=== PATIENT | male | born 2000 | race Caucasian/White ===

== ENCOUNTER 2020-08-23 08:52 | Observation (INO) | payer BC, OTHER ==
[2020-08-23] MEDS ORDERED: LORazepam 2 MG/ML INJ IV STA ×2 (09:03→13:14)
[2020-08-23] MEDS ORDERED: ONDANSETRON 4 MG/2 ML VIAL IVP STA (09:03)
[2020-08-23] MEDS ORDERED: SODIUM CHLORIDE 0.9% 2,000 ML IV STA (09:03)
[2020-08-23] MEDS ORDERED: KETOROLAC 15 MG/ML 1 ML VIAL IVP STA (09:03)
--- NOTE | 2020-08-23 09:14 | ED ---
General Adult HPI - General Chief complaint: Abdominal Pain Stated complaint: abd pain Time Seen by Provider: 08/23/20 08:57 Source: patient, RN notes reviewed Mode of arrival: wheelchair Limitations: no limitations - History of Present Illness Initial comments: 19-year-old male with a past medical history of IBS presents to the emergency room for a chief complaint of abdominal pain. Patient reports he has had this abdominal pain before. He has had a scope done at [facility] and was diagnosed bowel syndrome. Patient also has nausea vomiting and diarrhea. Patient reports this happened 3 days ago. Father reports that triggers his anxiety. Patient reports his whole abdomen hurts. Patient states that hot showers make it better. States he showers 7 times yesterday but then when he gets out the pain comes back. He does admit to smoking marijuana.Patient has no other complaints at this time including shortness of breath, chest pain, headache, or visual changes. - Related Data Home Medications Medication Instructions Recorded Confirmed L.acidoph,Paracasei, B.lactis 1 cap PO DAILY 08/23/20 08/23/20 [Probiotic] Allergies Allergy/AdvReac Type Severity Reaction Status Date / Time No Known Allergies Allergy Verified 08/23/20 09:53 Review of Systems ROS Statement: Those systems with pertinent positive or pertinent negative responses have been documented in the HPI. ROS Other: All systems not noted in ROS Statement are negative. Past Medical History Additional Past Medical History / Comment(s): IBS History of Any Multi-Drug Resistant Organisms: None Reported Past Surgical History: No Surgical Hx Reported Past Psychological History: Anxiety Smoking Status: Current every day smoker Past Alcohol Use History: None Reported Past Drug Use History: Marijuana General Exam Limitations: no limitations General appearance: alert, anxious Head exam: Present: atraumatic, normocephalic, normal inspection Eye exam: Present: normal appearance, PERRL, EOMI. Absent: scleral icterus, c onjunctival injection, periorbital swelling ENT exam: Present: normal exam, mucous membranes moist Neck exam: Present: normal inspection. Absent: tenderness, meningismus, lymphadenopathy Respiratory exam: Present: normal lung sounds bilaterally. Absent: respiratory distress, wheezes, rales, rhonchi, stridor Cardiovascular Exam: Present: regular rate, normal rhythm, normal heart sounds GI/Abdominal exam: Present: soft, normal bowel sounds. Absent: distended, tenderness, guarding, rebound, rigid Neurological exam: Present: alert Course Vital Signs 08/23/20 08/23/20 08:54 10:52 Temperature 98.5 F Pulse Rate 107 H 93 Respiratory 18 20 Rate Blood Pressure 150/72 117/56 O2 Sat by Pulse 99 99 Oximetry Medical Decision Making - Medical Decision Making Condition initially tachycardic. On exam patient has minimal abdominal tenderness generalized in nature. He is vomiting. CBC unremarkable. CMP unremarkable. Patient has been given several different medications include Zofran, Toradol, Reglan, Benadryl, Ativan, bentyl. He continues to vomit. I did discuss this case with Dr. Jenkins from [facility] who does agree to admit patient. Requests CT be ordered and patient be admitted to observation. - Lab Data Result diagrams: 08/23/20 09:07 08/23/20 09:07 Lab Results 08/23/20 08/23/20 Range/Units 09:07 09:07 WBC 6.5 (3.8-10.6) k/uL RBC 5.35 (4.30-5.90) m/uL Hgb 16.4 (13.0-17.5) gm/dL Hct 46.1 (39.0-53.0) % MCV 86.2 (80.0-100.0) fL MCH 30.8 (25.0-35.0) pg MCHC 35.7 (31.0-37.0) g/dL RDW 12.2 (11.5-15.5) % Plt Count 274 (150-450) k/uL MPV 7.3 Neutrophils % 66 % Lymphocytes % 24 % Monocytes % 5 % Eosinophils % 3 % Basophils % 1 % Neutrophils # 4.3 (1.3-7.7) k/uL Lymphocytes # 1.5 (1.0-4.8) k/uL Monocytes # 0.3 (0-1.0) k/uL Eosinophils # 0.2 (0-0.7) k/uL Basophils # 0.0 (0-0.2) k/uL Sodium 140 (137-145) mmol/L Potassium 4.1 (3.5-5.1) mmol/L Chloride 102 (98-107) mmol/L Carbon Dioxide 23 (22-30) mmol/L Anion Gap 15 mmol/L BUN 13 (9-20) mg/dL Creatinine 0.98 (0.66-1.25) mg/dL Est GFR (CKD-EPI)AfAm >90 (>60 ml/min/1.73 sqM) Est GFR (CKD-EPI)NonAf >90 (>60 ml/min/1.73 sqM) Glucose 105 H (74-99) mg/dL Calcium 10.2 (8.4-10.2) mg/dL Total Bilirubin 1.5 H (0.2-1.3) mg/dL AST 23 (17-59) U/L ALT 16 (4-49) U/L Alkaline Phosphatase 72 (38-126) U/L Total Protein 8.1 (6.3-8.2) g/dL Albumin 5.2 H (3.5-5.0) g/dL Amylase 55 (30-110) U/L Lipase 49 (23-300) U/L Disposition Clinical Impression: Intractable nausea and vomiting, Abdominal pain Disposition: ADMITTED IP TO THIS HOSP Is patient prescribed a controlled substance at d/c from ED?: No Referrals: Prashant Lagunas MD [Primary Care Provider] - 1-2 days Time of Disposition: 11:24
[2020-08-23 09:42] LABS: Basophils % (A) 1 %; Eosinophils # (A) 0.2 k/uL (0-0.7); Eosinophils % (A) 3 %; HCT 46.1 % (39.0-53.0); HGB 16.4 gm/dL (13.0-17.5); Lymphocytes # (A) 1.5 k/uL (1.0-4.8); Lymphocytes % (A) 24 %; MCH 30.8 pg (25.0-35.0); MCHC 35.7 g/dL (31.0-37.0); MCV 86.2 fL (80.0-100.0); Mean Platelet Volume 7.3; Monocytes # (A) 0.3 k/uL (0-1.0); Monocytes % (A) 5 %; Neutrophils # (A) 4.3 k/uL (1.3-7.7); Neutrophils % (A) 66 %; Platelet Count 274 k/uL (150-450); RBC 5.35 m/uL (4.30-5.90); RDW 12.2 % (11.5-15.5); WBC 6.5 k/uL (3.8-10.6)
[2020-08-23] MEDS ORDERED: METOCLOPRAMIDE 5 MG/ML 2 ML VIAL IVP STA (09:55)
[2020-08-23] MEDS ORDERED: DICYCLOMINE 20 MG TAB PO STA (09:55)
[2020-08-23] MEDS ORDERED: diphenhydrAMINE 50 MG/ML 1 ML VIAL IVP STA (09:55)
[2020-08-23 10:04] LABS: ALT 16 U/L (4-49); AST 23 U/L (17-59); African American GFR (CKD) >90 (>60 ml/min/1.73 sqM); Albumin 5.2 g/dL (3.5-5.0); Alkaline Phosphatase 72 U/L (38-126); Amylase 55 U/L (30-110); Anion Gap 15 mmol/L; Blood Urea Nitrogen 13 mg/dL (9-20); Calcium 10.2 mg/dL (8.4-10.2); Carbon Dioxide 23 mmol/L (22-30); Chloride 102 mmol/L (98-107); Glucose 105 mg/dL (74-99); Lipase 49 U/L (23-300); Non-African American GFR(CKD) >90 (>60 ml/min/1.73 sqM); Potassium 4.1 mmol/L (3.5-5.1); Sodium 140 mmol/L (137-145); Total Bilirubin 1.5 mg/dL (0.2-1.3); Total Protein 8.1 g/dL (6.3-8.2)
[2020-08-23] MEDS ORDERED: NALOXONE 0.4 MG/ML 1 ML VIAL IV PRN (11:21)
[2020-08-23] MEDS ORDERED: ONDANSETRON 4 MG/2 ML VIAL IVP PRN (11:21)
[2020-08-23] MEDS ORDERED: METOCLOPRAMIDE 5 MG/ML 2 ML VIAL IVP PRN (11:22)
[2020-08-23] MEDS ORDERED: diphenhydrAMINE 50 MG/ML 1 ML VIAL IVP PRN (11:23)
[2020-08-23] MEDS: PANTOPRAZOLE 40 MG/10 ML VIAL IV SCH (11:46)
[2020-08-23] MEDS: SODIUM CHLORIDE 0.9% 1,000 ML IV SCH ×2 (11:47→19:29)
[2020-08-23 11:58] LABS: Appearance,Urine Clear (Clear); Bilirubin,Urine 1+ (Negative); Blood,Urine Small (Negative); Calcium Oxalate Crystals,Urine Occasional /hpf; Color,Urine Yellow; Glucose,Urine (UA) Negative (Negative); Ketones,Urine 4+ (Negative); Leukocyte Esterase,Urine Negative (Negative); Mucus,Urine Many /hpf; Nitrite,Urine Negative (Negative); PH, Urine 6.5 (5.0-8.0); Protein,Urine 1+ (Negative); RBC,Urine 19 /hpf (0-5); Specific Gravity,Urine 1.036 (1.001-1.035); WBC,Urine 1 /hpf (0-5)
[2020-08-23] MEDS: PROCHLORPERAZINE INJ 10 MG/2 ML VIAL IVP PRN ×2 (12:00→19:26)
--- NOTE | 2020-08-23 12:13 | CT ---
EXAMINATION TYPE: CT abdomen pelvis w con DATE OF EXAM: 08/23/2020 COMPARISON: None. HISTORY: generalized pain, history of IBS CT DLP: 616.6 mGycm, Automated Exposure Control for Dose Reduction was Utilized. CONTRAST: CT scan of the abdomen and pelvis is performed without oral and with IV Contrast, patient injected wi th 100 mL of Isovue 300. FINDINGS: LUNG BASES: No significant abnormality is appreciated. LIVER/GB: No significant abnormality is appreciated. PANCREAS: No significant abnormality is seen. SPLEEN: No significant abnormality is seen. ADRENALS: No significant abnormality is seen. KIDNEYS: No significant abnormality is seen. BOWEL: Suboptimal evaluation of bowel without enteric contrast. No suspicious small or large bowel di latation is seen. PROSTATE/SEMINAL VESICLES: No gross abnormality seen. LYMPH NODES: No greater than 1cm abdominal or pelvic lymph nodes are appreciated. OSSEOUS STRUCTURES: No significant abnormality is seen. OTHER: Focal narrowing of the celiac artery at its origin sagittal image 65. 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 Correlate clinically otherwise unremarkable study.
[2020-08-23] MEDS ORDERED: MORPHINE SULFATE 4 MG/ML SYRINGE IVP STA (13:14)
--- NOTE | 2020-08-23 14:05 | P.HPIM ---
History of Present Illness H&P Date: 08/23/20 Chief Complaint: Abdominal History of Presenting Illness: Patient is a 19-year-old male with a past medical history of inflammatory bowel syndrome who presented to the emergency department with a chief complaint of abdominal pain, nausea, vomiting, and diarrhea. Patient reports continuous abdominal pain nausea and vomiting 3 days with greater than 15 episodes of emesis daily followed by one episode of diarrhea this morning. Patient states he has been treating at home with hot showers showing mild improvement only during time in hot shower and immediately returns. Patient also reports daily cannabis use. Patient's father at bedside states patient has had continued episodes similar to this since high school which is also around the same time patient began smoking marijuana. Pt reports generalized abdominal pain and u nable to pinpoint exact location. Pt very restless, on hands and knees rocking back and forth in hospital bed. Additional medications being given. Pt again reports symptoms began 3 days ago and he denies having any lightheadedness, fever, chills, chest pain, palpitaitons, shortness of breath, or experiencing any numbness/tingling/weakness in extremities. Patient had full work-up completed in the emergency department. Labs were drawn with CBC and BMP unremarkable findings, lactic acid normal findings at 1.2, and liver profile did show an elevated total bili of 1.5. 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 Patient has been admitted under our services for abdominal pain with intractable nausea and vomiting and we have consulted Vascular surgery secondary to possible findings on CT. Review of systems: Pertinent positives and negatives as discussed in HPI, a complete review of systems was performed and all other systems are negative. Physical exam: General: Non toxic, appears at stated age, pt appears distressed secondary to reports of pain and uncomfortable and restless appearance-rocking back and forth on hands and knees. Derm: warm, dry Head: atraumatic, normocephalic, symmetric Eyes: EOMI, no lid lag, anicteric sclera Mouth: no lip lesion, mucus membranes dry Cardiovascular: S1-S2 normal with regular rhythm and tachycardic rate. No murmurs, gallops, or rubs noted. Posterior tibial pulses palpated bilaterally. Cap refill less than 2 seconds. Lungs: Respirations even, regular, and unlabored on room air. Lungs clear to a uscultation bilaterally with no wheezes, rhonchi, or rales noted. No accessory muscle usage. Abdominal: soft, diffuse tenderness upon palpation-increased reports of pain to epigastric and right lower quadrant regions. No guarding, no appreciable organomegaly Ext: No gross muscle atrophy, no edema, no contractures Neuro: GCS 15. Speech clear. 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 -NPO diet -Aggressive rehydration with IV fluids -Pain management and symptomatic care with pain medication and antiemetics. -Vascular surgery consult -Duplex ultrasound of celiac artery for further evaluation. Cannabinoid abuse -Patient reports daily use of cannabis, strongly encouraged and educated on the importance of cessation and risks associated with continued use including cannabinoid hyperemesis syndrome. The patient is admitted with an anticipated greater than 2 midnight stay for evaluation of abdominal pain and intractable nausea and vomiting. CODE STATUS: Full code DVT prophylaxis: SCDs Discussed with: Patient, RN and patient's mother and father at bedside. Anticipated discharge date: clinical course to determine Anticipated discharge place: home A total of 45 minutes was spent on the care of this complex patient more than 50% of the time was spent in counseling and care coordination. Past Medical History Additional Past Medical History / Comment(s): IBS History of Any Multi-Drug Resistant Organisms: None Reported Past Surgical History: No Surgical Hx Reported Past Psychological History: Anxiety Smoking Status: Current every day smoker Past Alcohol Use History: None Reported Past Drug Use History: Marijuana Medications and Allergies Home Medications Medication Instructions Recorded Confirmed Type L.acidoph,Paracasei, B.lactis 1 cap PO DAILY 08/23/20 08/23/20 History [Probiotic] Allergies Allergy/AdvReac Type Severity Reaction Status Date / Time No Known Allergies Allergy Verified 08/23/20 09:53 Physical Exam Vitals: Vital Signs Temp Pulse Resp BP Pulse Ox 08/23/20 12:00 18 08/23/20 10:52 93 20 117/56 99 08/23/20 08:54 98.5 F 107 H 18 150/72 99 Intake and Output 08/22/20 08/23/20 08/23/20 22:59 06:59 14:59 Other: Voiding Method Toilet Weight 68.039 kg Results CBC & Chem 7: 08/23/20 09:07 08/23/20 09:07 Labs: Abnormal Lab Results - Last 24 Hours (Table) 08/23/20 08/23/20 Range/Units 09:07 09:07 Glucose 105 H (74-99) mg/dL Total Bilirubin 1.5 H (0.2-1.3) mg/dL Albumin 5.2 H (3.5-5.0) g/dL Ur Specific [place] 1.036 H (1.001-1.035) Urine Protein 1+ H (Negative) Urine Ketones 4+ H (Negative) Urine Blood Small H (Negative) Urine Bilirubin 1+ H (Negative) Urine RBC 19 H (0-5) /hpf Calcium Oxalate Crystal Occasional H (None) /hpf Urine Mucus Many H (None) /hpf
--- NOTE | 2020-08-23 17:21 | US ---
EXAMINATION TYPE: US abdomen limited DATE OF EXAM: 08/23/2020 COMPARISON: CT 2020 CLINICAL HISTORY: CT showing poss celiac artery compression syndrome. There is possible narrowing at origin of celiac artery. The celiac artery peak systolic velocity is a t the origin measuring 143 cm/s. IMPRESSION: Mildly elevated celiac artery velocity at the origin and raises possibility of narrowing.
[2020-08-23] MEDS: LORazepam 2 MG/ML INJ IV PRN (17:51)
[2020-08-23] MEDS: KETOROLAC 15 MG/ML 1 ML VIAL IVP PRN (19:27)
[2020-08-24] MEDS: LORazepam 2 MG/ML INJ IV PRN ×3 (00:10→19:36)
[2020-08-24] MEDS: KETOROLAC 15 MG/ML 1 ML VIAL IVP PRN ×2 (01:39→18:22)
[2020-08-24] MEDS: SODIUM CHLORIDE 0.9% 1,000 ML IV SCH ×2 (03:33→08:37)
[2020-08-24] MEDS: PANTOPRAZOLE 40 MG/10 ML VIAL IV SCH (08:19)
[2020-08-24 10:42] LABS: HGB 14.5 gm/dL (13.0-17.5); MCH 30.4 pg (25.0-35.0); MCHC 34.6 g/dL (31.0-37.0); Mean Platelet Volume 7.2; Platelet Count 269 k/uL (150-450); RBC 4.77 m/uL (4.30-5.90); RDW 12.5 % (11.5-15.5); WBC 11.3 k/uL (3.8-10.6)
[2020-08-24 10:57] LABS: ALT 14 U/L (4-49); AST 19 U/L (17-59); African American GFR (CKD) >90 (>60 ml/min/1.73 sqM); Albumin 4.4 g/dL (3.5-5.0); Albumin/Globulin Ratio 1.8; Alkaline Phosphatase 55 U/L (38-126); Anion Gap 10 mmol/L; Blood Urea Nitrogen 13 mg/dL (9-20); Calcium 9.1 mg/dL (8.4-10.2); Carbon Dioxide 23 mmol/L (22-30); Chloride 107 mmol/L (98-107); Globulin 2.5 g/dL; Glucose 92 mg/dL (74-99); Non-African American GFR(CKD) >90 (>60 ml/min/1.73 sqM); Sodium 140 mmol/L (137-145); Total Bilirubin 1.2 mg/dL (0.2-1.3); Total Protein 6.9 g/dL (6.3-8.2)
--- NOTE | 2020-08-24 12:03 | P.GSCN ---
History of Present Illness Consult date: 08/24/20 Reason for Consult: possible celiac artery compression Requesting physician: Jennifer Purcell History of present illness: This is a pleasant 19-year-old male who presented to the emergency department with complaints of abdominal pain, nausea, and vomiting the last few days. Patient states he has chronic abdominal pain nausea and vomiting which began in his mana year in high school. He had followed at [facility] workup which includes an EGD and colonoscopy at age 15, his father is at the bedside and reported that there was no acute findings, some irritation from the EGD. Was told likely IBS. He states that usually starts with nausea, and vomiting and abdominal pain. States he has loose bowel movements usually once a day, takes probiotics. He denies any blood or mucus in his stool. He states he has had decreased appetite, weight loss of 55 pounds over the last few months. Reports the pain as sharp in the epigastric and periumbilical region, states he may vomit sometimes as many as 15-20 times a day, some days no vomiting. He denies any hematemesis or coffee-ground emesis. He admits to anxiety. Denies any shortness of breath or chest pain, fever or chills. He does have a significant history of marijuana smoking and dabbing multiple times a day. As part of his workup he had a CT of the abdomen and pelvis that showed focal narrowing of the celiac artery, possible celiac artery compression. Also abdominal ultrasound showed mildly elevated celiac artery was sitting at the origin and raises possibility of narrowing. Review of Systems 14 point review of systems was completed all pertinent positives and negatives as stated in the HPI. Past Medical History Additional Past Medical History / Comment(s): IBS History of Any Multi-Drug Resistant Organisms: None Reported Past Surgical History: No Surgical Hx Reported Past Anesthesia/Blood Transfusion Reactions: No Reported Reaction Past Psychological History: Anxiety Smoking Status: Current every day smoker Past Alcohol Use History: None Reported Past Drug Use History: Marijuana Medications and Allergies Home Medications Medication Instructions Recorded Confirmed Type L.acidoph,Paracasei, B.lactis 1 cap PO DAILY 08/23/20 08/23/20 History [Probiotic] Allergies Allergy/AdvReac Type Severity Reaction Status Date / Time No Known Allergies Allergy Verified 08/23/20 09:53 Surgical - Exam Vital Signs Temp Pulse Resp BP Pulse Ox 98.5 F 107 H 18 150/72 99 06/20/21 08:54 08/23/20 08:54 08/23/20 08:54 08/23/20 08:54 08/23/20 08:54 General appearance: The patient is alert, oriented, appears in no acute distress. HET: Head is normocephalic and atraumatic. . Neck: Supple without lymphadenopathy. Trachea midline. Heart: S1 S2. Regular rate and rhythm. Lungs: No crackles or wheezes are heard. Abdomen: Soft, thin, diffuse tenderness, positive bowel sounds. No guarding or rigidity. Extremities: Normal skin color and turgor. Palpable bilateral radial pulses, palpable femoral, posterior tibialis, and dorsalis pedis pulses. Neurological: No focal deficits. Strength and sensation are grossly intact. Results CT abdomen and pelvis shows focal narrowing of the celiac artery, possible celiac artery compression. Abdominal ultrasound showing mildly elevated celiac artery velocity at the o rigin and raises possibility of narrowing. - Labs 08/24/20 10:08 08/24/20 10:08 Abnormal Lab Results - Last 24 Hours (Table) 08/23/20 08/23/20 Range/Units 09:07 09:07 Glucose 105 H (74-99) mg/dL Total Bilirubin 1.5 H (0.2-1.3) mg/dL Albumin 5.2 H (3.5-5.0) g/dL Ur Specific [place] 1.036 H (1.001-1.035) Urine Protein 1+ H (Negative) Urine Ketones 4+ H (Negative) Urine Blood Small H (Negative) Urine Bilirubin 1+ H (Negative) Urine RBC 19 H (0-5) /hpf Calcium Oxalate Crystal Occasional H (None) /hpf Urine Mucus Many H (None) /hpf Diabetes panel 08/23/20 Range/Units 09:07 Sodium 140 (137-145) mmol/L Potassium 4.1 (3.5-5.1) mmol/L Chloride 102 (98-107) mmol/L Carbon Dioxide 23 (22-30) mmol/L BUN 13 (9-20) mg/dL Creatinine 0.98 (0.66-1.25) mg/dL Glucose 105 H (74-99) mg/dL Calcium 10.2 (8.4-10.2) mg/dL AST 23 (17-59) U/L ALT 16 (4-49) U/L Alkaline Phosphatase 72 (38-126) U/L Total Protein 8.1 (6.3-8.2) g/dL Albumin 5.2 H (3.5-5.0) g/dL Calcium panel 08/23/20 Range/Units 09:07 Calcium 10.2 (8.4-10.2) mg/dL Albumin 5.2 H (3.5-5.0) g/dL Pituitary panel 08/23/20 Range/Units 09:07 Sodium 140 (137-145) mmol/L Potassium 4.1 (3.5-5.1) mmol/L Chloride 102 (98-107) mmol/L Carbon Dioxide 23 (22-30) mmol/L BUN 13 (9-20) mg/dL Creatinine 0.98 (0.66-1.25) mg/dL Glucose 105 H (74-99) mg/dL Calcium 10.2 (8.4-10.2) mg/dL Adrenal panel 08/23/20 Range/Units 09:07 Sodium 140 (137-145) mmol/L Potassium 4.1 (3.5-5.1) mmol/L Chloride 102 (98-107) mmol/L Carbon Dioxide 23 (22-30) mmol/L BUN 13 (9-20) mg/dL Creatinine 0.98 (0.66-1.25) mg/dL Glucose 105 H (74-99) mg/dL Calcium 10.2 (8.4-10.2) mg/dL Total Bilirubin 1.5 H (0.2-1.3) mg/dL AST 23 (17-59) U/L ALT 16 (4-49) U/L Alkaline Phosphatase 72 (38-126) U/L Total Protein 8.1 (6.3-8.2) g/dL Albumin 5.2 H (3.5-5.0) g/dL Assessment and Plan Assessment: 1. Abdominal pain 2. Nausea and vomiting, diarrhea 3. 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 Anxiety 5. Significant marijuana use Plan: The patient, as well as CT of abdomen and pelvis results and abdominal ultraso und results reviewed with Dr. Pickens. There is not any indication for any vascular surgical intervention. Patient recommended to make dietary changes, marijuana cessation, and can have outpatient follow-up with vascular surgery. Discussed with patient 6 vomiting and abdominal pain likely related to marijuana use, discussed importance of cessation to help improve symptoms. May follow-up outpatient as planned with gastroenterology. Thank you for this consultation allowing us take part in the plan of care of your patient during his hospital stay. The impression and plan of care has been dictated as directed. Dr. Pickens I performed a history and examination of this patient, discussed the same with the dictator. I agree with the dictator's note ,documented as a scribe. Any additional findings or plans will be noted.
--- NOTE | 2020-08-24 13:57 | P.PN ---
Subjective Progress Note Date: 08/24/20 History of Presenting Illness: Patient is a 19-year-old male with a past medical history of inflammatory bowel syndrome who presented to the emergency department with a chief complaint of abdominal pain, nausea, vomiting, and diarrhea. Patient reports continuous abdominal pain nausea and vomiting 3 days with greater than 15 episodes of emesis daily followed by one episode of diarrhea this morning. Patient states he has been treating at home with hot showers showing mild improvement only during time in hot shower and immediately returns. Patient also reports daily cannabis use. Patient's father at bedside states patient has had continued episodes similar to this since high school which is also around the same time patient began smoking marijuana. Pt reported generalized abdominal pain and unable to pinpoint exact location. Patient had full work-up completed in the emergency department. Labs were drawn with CBC and BMP unremarkable findings, lactic acid normal findings at 1.2, and liver profile did show an elevated total bili of 1.5. 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 Patient has been admitted under our services for abdominal pain with intractable nausea and vomiting and we have consulted Vascular surgery secondary to possible findings on CT. Abdominal Duplex ultrasound also showing concerns for mildly elevated celiac artery velocity at its origin also raising concerns of focal narrowing. Physical exam: General: Non toxic, appears at stated age, patient appears much more comfortable to today showing no signs of acute distress. Derm: warm, dry Head: atraumatic, normocephalic, symmetric Eyes: EOMI, no lid lag, anicteric sclera Mouth: no lip lesion, mucus membranes dry Cardiovascular: S1-S2 normal with regular rhythm and tachycardic rate. No murmurs, gallops, or rubs noted. Posterior tibial pulses palpated bilaterally. Cap refill less than 2 seconds. Lungs: Respirations even, regular, and unlabored on room air. Lungs clear to auscultation bilaterally with no wheezes, rhonchi, or rales noted. No accessory muscle usage. Abdominal: soft, slight diffuse tenderness upon palpation. No guarding, no appreciable organomegaly Ext: No gross muscle atrophy, no edema, no contractures Neuro: GCS 15. Speech clear. 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 -Abdominal Duplex ultrasound also showing concerns for mildly elevated celiac artery velocity at its origin also raising concerns of focal narrowing. -Initiate clear liquid diet and advance to regular diet as patient tolerates. -Continue pain management and symptomatic care with pain medication and antiemetics. -Vascular surgery consulted, recommending outpatient follow-up. Cannabinoid abuse -Patient reports daily use of cannabis, strongly encouraged and educated on the importance of cessation and risks associated with continued use including cannabinoid hyperemesis syndrome. Anxiety -Psychiatry consult for possible medication management as patient has been previously self medicating with cannabis to treat anxiety. The patient is admitted with an anticipated greater than 2 midnight stay for evaluation of abdominal pain and intractable nausea and vomiting. CODE STATUS: Full code DVT prophylaxis: SCDs Discussed with: Patient, RN and patient's mother and father at bedside. Anticipated discharge date: likely discharge home tomorrow morning pending how pt tolerates advancing diet. Anticipated discharge place: Home A total of 45 minutes was spent on the care of this complex patient more than 50% of the time was spent in counseling and care coordination. Objective - Vital Signs Vital signs: Vital Signs Temp 98.7 F 08/24/20 07:00 Pulse 98 08/24/20 08:00 Resp 14 08/24/20 08:00 BP 106/62 08/24/20 07:00 Pulse Ox 88 L 08/24/20 07:00 Intake & Output 08/23/20 08/24/20 08/24/20 18:59 06:59 18:59 Intake Total 260 Output Total 50 Balance -50 260 Weight 68.039 kg Intake: IV 260 Sodium Chloride 0.9% 1, 260 000 ml @ 130 mls/hr IV . [id number] [facility] Rx#:[id number] Output: Emesis 50 Other: Voiding Method Toilet Toilet Toilet # Voids 0 2 - Labs CBC & Chem 7: 08/24/20 10:08 08/24/20 10:08 Labs: Abnormal Lab Results - Last 24 Hours (Table) 08/23/20 08/24/20 Range/Units 09:07 10:08 WBC 11.3 H (3.8-10.6) k/uL Ur Specific [place] 1.036 H (1.001-1.035) Urine Protein 1+ H (Negative) Urine Ketones 4+ H (Negative) Urine Blood Small H (Negative) Urine Bilirubin 1+ H (Negative) Urine RBC 19 H (0-5) /hpf Calcium Oxalate Crystal Occasional H (None) /hpf Urine Mucus Many H (None) /hpf
--- NOTE | 2020-08-24 13:59 | P.CN ---
Psychiatric Consult - . Consult date: 08/24/20 Consult:: 08/24/20 13:53 IDENTIFYING DATA: This patient is a 19-year-old male who currently lives with his parents in a house has no kids. 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 REASON FOR REFERRAL: Psychiatry was consulted for anxiety HISTORY OF PRESENT ILLNESS: The patient presented to the hospital on 08/23 for complaints of abdominal pain some nausea and vomiting for the past 3 days. According to ER report he was claiming that the abdominal pain was being trip are triggered by his anxiety. He claims that showering has helped his nausea and vomiting and anxiety. Patient was seen at bedside today and agreeable speak to resume writer. He appeared to be in mild distress secondary to anxiety and also nausea. He states that he has been dealing with IBS symptoms for the past 4-5 years and claims that he has been scoped at [facility]. He claims it has been progressively getting worse and doctors told him that he has "chronic IBS". He claims that he has been trying to adjust his diet with little help. He states that his anxiety has been worsening and has actually woken him up from sleep in the past. He claims that he has been feeling depressed at times as he hates being in the hospital and being examined. He claims that almost anything can trigger his anxiety at this point. He claims that his sleep has been on and off and appetite is been fair at times however does feel sick in the morning when he eats. He states that he smokes marijuana approximately 2-3 joints a day and also dabs 6-8 times a day.. At this time patient denies any suicidal or homical ideations, intent or plan. Patient denies any auditory, visual hallucinations and denies any paranoia or delusions. Patients admits to using cannabis as described above. He also claims that he smokes cigarettes. PAST PSYCHIATRIC HISTORY: Patient has a a history of anxiety and IBS. Patient denies being on any psychiatric medications. Patient denies any previous psychiatric hospitalizations. Patient denies any psychiatric outpatient follow- up. Patient denies any history of suicide attempts in the past. PAST MEDICAL HISTORY: IBS. ALLERGIES: as per EMR. CHEMICAL DEPENDENCY HISTORY: as per HPI. FAMILY PSYCHIATRIC/SUBSTANCE USE HISTORY: denies SOCIAL HISTORY: Patient was born and raised in [place]. He claims that he completed high school. He denies any legal history. 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 He does not have any kids and currently lives with his parents in her house.. MENTAL STATUS EXAM: General Appearance: Patient appears to be thin, tall, has long hair, stated age is alert, attending to cooperate. Patient appears to have fair hygiene and grooming wearing hospital gown with fair eye contact. Behavior: Patient is restless at times in bed without any agitated behavior. Speech: Patient's speech is fluent and nonpressured. Mood/Affect: Patient reports their mood is "depressed and anxious", affect is congruent Suicidality/Homicidality: Patient denies having any suicidal or homicidal i deation intent or plan. Perceptions: Patient denies any visual hallucinations and denies any auditory hallucinations Though content/process: There is no evidence of any delusional thought content and thought process is linear and goal-directed. Memory and concentration: AOX3, grossly intact for the purposes of this session. Can spell "WORLD" backwards Judgment and insight: poor IMPRESSIONS: Anxiety disorder unspecified, likely secondary to cannabis use History of irritable bowel syndrome Cannabis use disorder Nicotine dependence PLAN: -At this time patient DOES NOT meet criteria for inpatient psychiatric admission. -Would recommend the following medication changes/additions: Effexor 37.5 mg daily for mood/anxiety. Trazodone 50 mg daily at bedtime for insomnia/mood. -aquaculture worker to give patient outpatient mental health resources for psychiatric outpatient follow-up. -Boat Loader spoke with patient about substance abuse and the harmful effects on medical and mental health, patient verbally understood and agreed. -Communicated with patient's nurse -Will continue to follow along -Please contact with any questions.
[2020-08-24 14:09] VITALS: BMI 19.2
[2020-08-24] MEDS: VENLAFAXINE HCL ER 37.5 MG CAP PO SCH (14:27)
[2020-08-24] MEDS ORDERED: traZODone HCL 50 MG TAB PO SCH (21:00)
[2020-08-25 03:42] VITALS: RESP 17
[2020-08-25] MEDS: LORazepam 2 MG/ML INJ IV PRN (06:19)
[2020-08-25 07:28] VITALS: BP 152/66; PULSE 82; TEMP 98.4
[2020-08-25] MEDS: VENLAFAXINE HCL ER 37.5 MG CAP PO SCH (08:45)
[2020-08-25] MEDS: PANTOPRAZOLE 40 MG/10 ML VIAL IV SCH ×2 (08:45→09:02)
[2020-08-25] MEDS ORDERED: PROCHLORPERAZINE 5 MG TAB PO PRN (09:13)
[2020-08-25] MEDS ORDERED: PANTOPRAZOLE 40 MG TABLET PO STA (09:13)
[2020-08-25] MEDS ORDERED: PANTOPRAZOLE 40 MG/10 ML VIAL IVP SCH (09:30)
--- NOTE | 2020-08-25 09:46 | P.DS ---
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 Do you want consulting provider notified?: Yes 08/24/20 11:55 Consult Physician Routine Consulting Provider: Rogelio Gerardo Consult Reason/Comments: anxiety Do you want consulting provider notified?: Yes Primary care physician: [facility] Course: Discharge Diagnosis: Abdominal pain with intractable nausea and vomiting secondary to cyclic vomiting syndrome related to daily cannabinoid use Cannabinoid abuse Anxiety Nicotine dependence Hospital Course: Patient is a 19-year-old male with a past medical history of inflammatory bowel syndrome who presented to the emergency department with a chief complaint of abdominal pain, nausea, vomiting, and diarrhea. Patient reported continuous abdominal pain nausea and vomiting 3 days with greater than 15 episodes of emesis daily followed by one episode of diarrhea. Patient stated he has been self-treating at home with hot showers showing mild improvement only during time in hot shower with immediate return of symptoms. Patient also reports extreme anxiety in which he self medicates with daily cannabis use. Patient's father at bedside states patient has had continued episodes similar to this since high school. Pt reported generalized abdominal pain and unable to pinpoint exact location. Labs were drawn with CBC and BMP unremarkable findings, lactic acid normal findings at 1.2, and liver profile did show an elevated total bili of 1.5 which resolved after hydration with IV fluids. 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 Abdominal Duplex ultrasound also showing concerns for mildly elevated celiac artery velocity at its origin also raising concerns of focal narrowing. Patient was treated with IV fluids and anti-emetics. He was monitored closely by our team with consults to vascular surgery and psychiatry. After treatment, pt's vomiting subsided and he was tolerating oral intake of food and fluids. He is being discharged home and instructed that it is very important for him to refrain from any cannabis abuse including smoking, oils, or edibles. Psychiatry started pt on Effexor and trazodone for treatment of his anxiety and recommended him to follow-up outpatient with psychiatry, resources provided by director of social media marketing. prescriptions provided for Protonix to assist with decreasing the amount of acid produced inpatient stomach as well as Compazine to be used only as needed with episodes of nausea and vomiting. Patient to follow-up outpatient with gastroenterology as well as vascular surgery for continued monitoring and management of potential celiac artery compression syndrome. Physical exam: General: Non toxic, appears at stated age, patient appears comfortable to today showing no signs of acute distress. Derm: warm, dry Head: atraumatic, normocephalic, symmetric Eyes: EOMI, no lid lag, anicteric sclera Mouth: no lip lesion, mucus membranes dry Cardiovascular: S1-S2 normal with regular rate and rhythm. No murmurs, gallops, or rubs noted. Posterior tibial pulses palpated bilaterally. Cap refill less t dunn 2 seconds. Lungs: Respirations even, regular, and unlabored on room air. Lungs clear to auscultation bilaterally with no wheezes, rhonchi, or rales noted. No accessory muscle usage. Abdominal: soft, slight diffuse tenderness upon palpation. No guarding, no appreciable organomegaly Ext: No gross muscle atrophy, no edema, no contractures Neuro: GCS 15. Speech clear. CN II-XI grossly intact, no focal neuro deficits Psych: Alert, oriented, appropriate affect A total of 45 minutes of time was spent preparing this complex discharge summary. Plan - Discharge Summary Discharge Rx Participant: No New Discharge Prescriptions: New Prochlorperazine [Compazine] 10 mg PO Q6H PRN #24 tab PRN Reason: Nausea And Vomiting traZODone HCL [Desyrel] 50 mg PO HS 30 Days #30 tab Venlafaxine HCl ER [Effexor XR] 37.5 mg PO DAILY 30 Days #30 cap.er.24h Pantoprazole Sodium [Protonix] 40 mg PO DAILY 30 Days #30 tablet. Continue LDomingoacidoph,Paracasei, B.lactis [Probiotic] 1 cap PO DAILY Discharge Medication List L.acidoph,Paracasei, B.lactis [Probiotic] 1 cap PO DAILY 08/23/20 [History] Pantoprazole Sodium [Protonix] 40 mg PO DAILY 30 Days #30 tablet. 08/25/20 [Rx] Prochlorperazine [Compazine] 10 mg PO Q6H PRN #24 tab 08/25/20 [Rx] Venlafaxine HCl ER [Effexor XR] 37.5 mg PO DAILY 30 Days #30 cap.er.24h 08/25/20 [Rx] traZODone HCL [Desyrel] 50 mg PO HS 30 Days #30 tab 08/25/20 [Rx] Follow up Appointment(s)/Referral(s): Prashant Lagunas MD [Primary Care Provider] - 1-2 days Karol Pickens DO [STAFF PHYSICIAN] - 4 Weeks Mickey Hernandez MD [STAFF PHYSICIAN] - 1 Week Activity/Diet/Wound Care/Special Instructions: Activity: As tolerated Diet: Regular diet Special Instructions: It is very important for you to refrain from any cannabis use including smoking, oils, or edibles. You have been started on Effexor and trazodone for treatment of your anxiety. We will continue with daily Protonix to help decrease the amount of acid produced in your stomach, also I have sent a prescription for Compazine to be used only as needed for nausea and vomiting. 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 Pickens discussed with you. It was a pleasure having you for a patient, I wish you the best! Discharge Disposition: HOME SELF-CARE
--- NOTE | 2020-08-25 12:46 | P.PN ---
Progress Note - Text Progress Note Date: 08/25/20 Interval History: Patient was seen today for psychiatric follow-up regarding patient's anxiety. Patient continues to appear to be somewhat anxious. He claims that he feels safe today for discharge however felt that medication has not "kicked in yet". He was agreeable to have his Effexor increased and was counseled on medication compliance and also his marijuana use and how that is most likely contributing and worsening his anxiety. Patient verbally understood and agreed. he is future oriented and wanted to follow up with psychiatry when he leaves the hospital. He was fairly calm and directable. He appeared to be ready to leave the hospital and was in his street clothing. He claims that his mood is "fine" and is denying any depression today. He states that he did not sleep well last night. At this time patient denies any suicidal or homical ideations, intent or plan. Patient denies any auditory, visual hallucinations and denies any paranoia or delusions. Patient denies any side effects from the medications and has been compliant with meds. Mental Status Exam: General Appearance: Patient appears to be thin, tall, has long hair, stated age is alert, attempting to cooperate. Patient appears to have fair hygiene and grooming wearing hospital gown with fair eye contact. Behavior: Patient is restless at times in bed without any agitated behavior. Speech: Patient's speech is fluent and nonpressured. Mood/Affect: Patient reports their mood is "anxious", affect is congruent Suicidality/Homicidality: Patient denies having any suicidal or homicidal ideation intent or plan. Perceptions: Patient denies any visual hallucinations and denies any auditory hallucinations Though content/process: There is no evidence of any delusional thought content and thought process is linear and goal-directed. Future oriented. Memory and concentration: AOX3, grossly intact for the purposes of this session Judgment and insight: improving mildly Assessment Anxiety disorder unspecified, likely secondary to cannabis use History of irritable bowel syndrome Cannabis use disorder Nicotine dependence Plan: -At this time patient DOES NOT meet criteria for inpatient psychiatric admission. -Would recommend the following medication changes/additions: increase Effexor 75 mg daily for mood/anxiety. increase Trazodone 100 mg daily at bedtime for insomnia/mood. Spoke with patient about medication compliance and the impact of marijuana use on his anxiety, patient verbally understood and agreed. -residential mental health worker to give patient outpatient mental health resources for psychiatric outpatient follow-up. -Maintenance Superintendent spoke with patient about substance abuse and the harmful effects on medi daniel and mental health, patient verbally understood and agreed. -Communicated with patient's nurse about the change in patient's medications. -at this time psychiatry will sign off. -Please contact with any questions.
[2020-08-25] MEDS ORDERED: traZODone HCL 100 MG TAB PO SCH (21:00)
[2020-08-26] MEDS ORDERED: VENLAFAXINE HCL ER 75 MG CAP PO SCH (09:00)
== END 2020-08-25 12:24 | disposition home or self-care (01) ==
LOC: EC 08:52 → 6NMEDSUR 11:19 → OBSVTOIN 08-24 11:53 → INTOOBSV 08-24 11:53 → UNDODISIN 08-25 12:24
PROVIDERS: ADMIT Internal Medicine; ATTEND Internal Medicine
DX: R11.15 Cyclical vomiting syndrome unrelated to migraine (principal); F12.10 Cannabis abuse, uncomplicated; F41.9 Anxiety disorder, unspecified; R00.0 Tachycardia, unspecified; F17.200 Nicotine dependence, unspecified, uncomplicated; K58.9 Irritable bowel syndrome, unspecified; G47.00 Insomnia, unspecified; E80.7 Disorder of bilirubin metabolism, unspecified; Z20.822 Contact with and (suspected) exposure to COVID-19; Z79.899 Other long term (current) drug therapy
CPT/HCPCS: 96376 ×3; 96361 ×2; 96375 ×2; 96374; 99285; 36415; 80053 ×2; 82150; 83605; 83690; 83735; 85025; 85027; 81001; 87635; 76705; 74177; G0378 ×3; S0183; J2060 ×3; J2270; J1200; J0780; J2765 ×2; J2405; J1885 ×2; C9113 ×2; Q9967

== ENCOUNTER 2022-05-31 04:40 | Emergency (ER) | payer BC ==
[2022-05-31 04:52] VITALS: RESP 18
[2022-05-31] MEDS ORDERED: KETOROLAC 15 MG/ML 1 ML VIAL IVP STA (05:04)
[2022-05-31] MEDS ORDERED: SODIUM CHLORIDE 0.9% 1,000 ML IV STA (05:04)
[2022-05-31] MEDS ORDERED: ONDANSETRON 4 MG/2 ML VIAL IVP STA (05:04)
[2022-05-31] MEDS ORDERED: HYDROmorphone 1 MG/ML 1 ML SYRINGE IVP STA (05:05)
--- NOTE | 2022-05-31 05:08 | ED ---
General Adult HPI <Benji Shah - Last Filed: 05/31/22 09:44> - General Source: patient, RN notes reviewed, old records reviewed Mode of arrival: ambulatory Limitations: no limitations <Brendan Shepard - Last Filed: 05/31/22 21:54> - General Chief complaint: Abdominal Pain Stated complaint: abd pain Time Seen by Provider: 05/31/22 04:44 - History of Present Illness Initial comments: 21-year-old male with sudden onset right-sided lower abdominal pain. Pain woke the patient from sleep. Associated with nausea and vomiting. No preceding symptoms. No fever. (Brendan Shepard) - Related Data Home Medications Medication Instructions Recorded Confirmed L.acidoph,Paracasei, B.lactis 1 cap PO DAILY 08/23/20 08/23/20 [Probiotic] Previous Rx's Medication Instructions Recorded Pantoprazole Sodium [Protonix] 40 mg PO DAILY 30 Days #30 08/25/20 tablet. Prochlorperazine [Compazine] 10 mg PO Q6H PRN #24 tab 08/25/20 Venlafaxine HCl ER [Effexor XR] 37.5 mg PO DAILY 30 Days #30 08/25/20 cap.er.24h traZODone HCL [Desyrel] 50 mg PO HS 30 Days #30 tab 08/25/20 Ibuprofen [Motrin] 600 mg PO Q8HR PRN #24 tab 05/31/22 Ondansetron Odt [Zofran Odt] 4 mg PO Q8HR PRN #10 tab 05/31/22 Tamsulosin [Flomax] 0.4 mg PO DAILY #7 cap 05/31/22 Allergies Allergy/AdvReac Type Severity Reaction Status Date / Time No Known Allergies Allergy Verified 05/31/22 04:50 Review of Systems ROS Other: All systems not noted in ROS Statement are negative. <Benji Shah - Last Filed: 05/31/22 09:44> ROS Other: All systems not noted in ROS Statement are negative. <Brendan Shepard - Last Filed: 05/31/22 21:54> ROS Statement: Those systems with pertinent positive or pertinent negative responses have been documented in the HPI. Past Medical History Additional Past Medical History / Comment(s): IBS History of Any Multi-Drug Resistant Organisms: None Reported Past Surgical History: No Surgical Hx Reported Past Anesthesia/Blood Transfusion Reactions: No Reported Reaction Past Psychological History: Anxiety Smoking Status: Former smoker Past Alcohol Use History: None Reported Past Drug Use History: Marijuana <Brendan Shepard - Last Filed: 05/31/22 21:54> General Exam Limitations: no limitations General appearance: alert, in distress Head exam: Present: atraumatic, normocephalic ENT exam: Present: normal exam Respiratory exam: Present: normal lung sounds bilaterally. Absent: respiratory distress, wheezes Cardiovascular Exam: Present: regular rate, normal rhythm GI/Abdominal exam: Present: tenderness (Right lower quadrant). Absent: distended Extremities exam: Present: normal inspection, normal capillary refill. Absent: pedal edema, calf tenderness Neurological exam: Present: alert, oriented X3, CN II-XII intact. Absent: motor sensory deficit Psychiatric exam: Present: anxious Skin exam: Present: intact, normal color, diaphoretic <Brendan Shepard - Last Filed: 05/31/22 21:54> Course Vital Signs 05/31/22 05/31/22 05/31/22 04:50 09:00 09:41 Temperature 97.9 F 98.1 F Pulse Rate 100 89 80 Respiratory 18 18 18 Rate Blood Pressure 146/93 140/81 115/69 O2 Sat by Pulse 98 96 99 Oximetry Medical Decision Making - Lab Data Result diagrams: 05/31/22 05:14 05/31/22 05:14 <Benji Shah - Last Filed: 05/31/22 09:44> - Lab Data Result diagrams: 05/31/22 05:14 05/31/22 05:14 <Brendan Shepard - Last Filed: 05/31/22 21:54> - Medical Decision Making Patient is sent out to me by previous shift physician, Dr. Torres. Briefly, patient is a 21-year-old male presents to emergency department right flank pain. Patient has 3 mm kidney stone located at the distal right ureter at the time of computed tomography scan. Plan at sign out was to monitor patient's clinical condition and determine final disposition. Patient reevaluated at 9:30 AM finally similar condition. Symptoms are im proved. Patient's agreeable with discharge. (Benji Sahh) Was pt. sent in by a medical professional or institution (, [facility], FACT CHECKER, urgent care, hospital, or halfway...) When possible be specific @ -[No] Did you speak to anyone other than the patient for history (EMS, parent, family, police, friend...)? What history was obtained from this source @ -[No] Did you review nursing and triage notes (agree or disagree)? Why? @ -[I reviewed and agree with nursing and triage notes] Were old charts reviewed (outside hosp., previous admission, EMS record, old EKG, old radiological studies, urgent care reports/EKG's, halfway records)? Report findings @ -[No old charts were reviewed] Differential Diagnosis (chest pain, altered mental status, abdominal pain women, abdominal pain men, vaginal bleeding, weakness, fever, dyspnea, syncope, headache, dizziness, GI bleed, back pain, seizure, CVA, palpatations, mental health, musculoskeletal)? @ -Differential Abdominal Pain Men: Appendicitis, cholecystitis, diverticulosis, ischemic bowel, pancreatitis, hepatitis, UTI, gastroenteritis, AAA, incarcerated hernia, bowel obstruction, constipation, inflammatory bowel, hepatitis, peptic ulcer disease, splenic infarction, perforated viscus, testicular torsion, this is not meant to be an a ll-inclusive list EKG interpreted by me (3pts min.). @ -[As above] X-rays interpreted by me (1pt min.). @ -Reviewed by myself, no acute process CT interpreted by me (1pt min.). @ -Distal stone in the right UVJ with hydronephrosis U/S interpreted by me (1pt. min.). @ -[None done] What testing was considered but not performed or refused? (CT, X-rays, U/S, labs)? Why? @ -[None] What meds were considered but not given or refused? Why? @ -[None] Did you discuss the management of the patient with other professionals (professionals i.e. [facility] Guo, FACT CHECKER, lab, RT, psych nurse, social work nurse, hydro plant site manager, teacher, juvenile corrections officer, counseling case manager)? Give summary @ -[No] Was smoking cessation discussed for >3mins.? @ -[No] Was critical care preformed (if so, how long)? @ -[No] Were there social determinants of health that impacted care today? How? (Home lessness, low income, unemployed, alcoholism, drug addiction, transportation, low edu. Level, literacy, decrease access to med. care, intermediate, rehab)? @ -[No] Was there de-escalation of care discussed even if they declined (Discuss DNR or withdrawal of care, Hospice)? DNR status @ -[No] What co-morbidities impacted this encounter? (DM, HTN, Smoking, COPD, CAD, Cancer, CVA, ARF, Chemo, Hep., AIDS, mental health diagnosis, sleep apnea, morbid obesity)? @ -[None] Was patient admitted / discharged? Hospital course, mention meds given and route, prescriptions, significant lab abnormalities, going to OR and other pertinent info. @ -21-year-old male with right flank and right-sided abdominal pain. Diagnosis obstructing renal stone, 3 mm. Undiagnosed new problem with uncertain prognosis? @ -[No] Drug Therapy requiring intensive monitoring for toxicity (Heparin, Nitro, Insulin, Cardizem)? @ -[No] Were any procedures done? @ -[No] Diagnosis/symptom? @ -Renal colic, obstructing kidney stone Acute, or Chronic, or Acute on Chronic? @ -Acute Uncomplicated (without systemic symptoms) or Complicated (systemic symptoms)? @ -Uncomplicated Side effects of treatment? @ -[No] Exacerbation, Progression, or Severe Exacerbation? @ -[No] Poses a threat to life or bodily function? How? (Chest pain, [place], NM, pneumonia, PE, COPD, DKA, ARF, appy, cholecystitis, CVA, Diverticulitis, Homicidal, Suicidal, threat to staff... and all critical care pts) @ -Risk of inability to pass stone, obstructive uropathy. (Brendan Shepard) - Lab Data Lab Results 05/31/22 05/31/22 05/31/22 Range/Units 05:14 05:14 05:52 WBC 12.8 H (3.8-10.6) k/uL RBC 5.23 (4.30-5.90) m/uL Hgb 15.9 (13.0-17.5) gm/dL Hct 46.4 (39.0-53.0) % MCV 88.8 (80.0-100.0) fL MCH 30.5 (25.0-35.0) pg MCHC 34.3 (31.0-37.0) g/dL RDW 12.8 (11.5-15.5) % Plt Count 325 (150-450) k/uL MPV 7.8 Neutrophils % 61 % Lymphocytes % 29 % Monocytes % 3 % Eosinophils % 4 % Basophils % 1 % Neutrophils # 7.9 H (1.3-7.7) k/uL Lymphocytes # 3.7 (1.0-4.8) k/uL Monocytes # 0.4 (0-1.0) k/uL Eosinophils # 0.5 (0-0.7) k/uL Basophils # 0.1 (0-0.2) k/uL Sodium 141 (137-145) mmol/L Potassium 3.8 (3.5-5.1) mmol/L Chloride 105 (98-107) mmol/L Carbon Dioxide 20 L (22-30) mmol/L Anion Gap 16 mmol/L BUN 16 (9-20) mg/dL Creatinine 1.05 (0.66-1.25) mg/dL Est GFR (CKD-EPI)AfAm >90 (>60 ml/min/1.73 sqM) Est GFR (CKD-EPI)NonAf >90 (>60 ml/min/1.73 sqM) Glucose 155 H (74-99) mg/dL Calcium 9.7 (8.4-10.2) mg/dL Total Bilirubin 1.2 (0.2-1.3) mg/dL AST 22 (17-59) U/L ALT 22 (4-49) U/L Alkaline Phosphatase 74 (38-126) U/L Total Protein 8.2 (6.3-8.2) g/dL Albumin 5.1 H (3.5-5.0) g/dL Lipase 69 (23-300) U/L Urine Color Yellow Urine Appearance Clear (Clear) Urine pH 6.0 (5.0-8.0) Ur Specific [place] 1.027 (1.001-1.035) Urine Protein Trace H (Negative) Urine Glucose (UA) Trace H (Negative) Urine Ketones 3+ H (Negative) Urine Blood Large H (Negative) Urine Nitrite Negative (Negative) Urine Bilirubin Negative (Negative) Urine Urobilinogen <2.0 (<2.0) mg/dL Ur Leukocyte Esterase Negative (Negative) Urine RBC 163 H (0-5) /hpf Urine WBC 2 (0-5) /hpf Urine Mucus Few H (None) /hpf Urine Opiates Screen (NotDetected) Ur Oxycodone Screen (NotDetected) Urine Methadone Screen (NotDetected) Ur Propoxyphene Screen (NotDetected) Ur Barbiturates Screen (NotDetected) U Tricyclic Antidepress (NotDetected) Ur Phencyclidine Scrn (NotDetected) Ur Amphetamines Screen (NotDetected) U Methamphetamines Scrn (NotDetected) U Benzodiazepines Scrn (NotDetected) Urine Cocaine Screen (NotDetected) U Marijuana (THC) Screen (NotDetected) 05/31/22 Range/Units 05:52 WBC (3.8-10.6) k/uL RBC (4.30-5.90) m/uL Hgb (13.0-17.5) gm/dL Hct (39.0-53.0) % MCV (80.0-100.0) fL MCH (25.0-35.0) pg MCHC (31.0-37.0) g/dL RDW (11.5-15.5) % Plt Count (150-450) k/uL MPV Neutrophils % % Lymphocytes % % Monocytes % % Eosinophils % % Basophils % % Neutrophils # (1.3-7.7) k/uL Lymphocytes # (1.0-4.8) k/uL Monocytes # (0-1.0) k/uL Eosinophils # (0-0.7) k/uL Basophils # (0-0.2) k/uL Sodium (137-145) mmol/L Potassium (3.5-5.1) mmol/L Chloride (98-107) mmol/L Carbon Dioxide (22-30) mmol/L Anion Gap mmol/L BUN (9-20) mg/dL Creatinine (0.66-1.25) mg/dL Est GFR (CKD-EPI)AfAm (>60 ml/min/1.73 sqM) Est GFR (CKD-EPI)NonAf (>60 ml/min/1.73 sqM) Glucose (74-99) mg/dL Calcium (8.4-10.2) mg/dL Total Bilirubin (0.2-1.3) mg/dL AST (17-59) U/L ALT (4-49) U/L Alkaline Phosphatase (38-126) U/L Total Protein (6.3-8.2) g/dL Albumin (3.5-5.0) g/dL Lipase (23-300) U/L Urine Color Urine Appearance (Clear) Urine pH (5.0-8.0) Ur Specific [place] (1.001-1.035) Urine Protein (Negative) Urine Glucose (UA) (Negative) Urine Ketones (Negative) Urine Blood (Negative) Urine Nitrite (Negative) Urine Bilirubin (Negative) Urine Urobilinogen (<2.0) mg/dL Ur Leukocyte Esterase (Negative) Urine RBC (0-5) /hpf Urine WBC (0-5) /hpf Urine Mucus (None) /hpf Urine Opiates Screen Detected H (NotDetected) Ur Oxycodone Screen Not Detected (NotDetected) Urine Methadone Screen Not Detected (NotDetected) Ur Propoxyphene Screen Not Detected (NotDetected) Ur Barbiturates Screen Not Detected (NotDetected) U Tricyclic Antidepress Not Detected (NotDetected) Ur Phencyclidine Scrn Not Detected (NotDetected) Ur Amphetamines Screen Not Detected (NotDetected) U Methamphetamines Scrn Not Detected (NotDetected) U Benzodiazepines Scrn Not Detected (NotDetected) Urine Cocaine Screen Not Detected (NotDetected) U Marijuana (THC) Screen Detected H (NotDetected) Disposition <Benji Shah - Last Filed: 05/31/22 09:44> Is patient prescribed a controlled substance at d/c from ED?: No Time of Disposition: 07:00 <Brendan Shepard - Last Filed: 05/31/22 21:54> Clinical Impression: Calculus of kidney Disposition: HOME SELF-CARE Condition: Good Prescriptions: Tamsulosin [Flomax] 0.4 mg PO DAILY #7 cap Ibuprofen [Motrin] 600 mg PO Q8HR PRN #24 tab PRN Reason: Pain Ondansetron Odt [Zofran Odt] 4 mg PO Q8HR PRN #10 tab PRN Reason: Vomiting Referrals: Prashant Lagunas MD [Primary Care Provider] - 1-2 days Pillo Quintero MD [STAFF PHYSICIAN] - 1-2 days
[2022-05-31 05:24] LABS: Basophils # (A) 0.1 k/uL (0-0.2); Basophils % (A) 1 %; Eosinophils # (A) 0.5 k/uL (0-0.7); Eosinophils % (A) 4 %; HCT 46.4 % (39.0-53.0); HGB 15.9 gm/dL (13.0-17.5); Lymphocytes # (A) 3.7 k/uL (1.0-4.8); Lymphocytes % (A) 29 %; MCH 30.5 pg (25.0-35.0); MCHC 34.3 g/dL (31.0-37.0); MCV 88.8 fL (80.0-100.0); Mean Platelet Volume 7.8; Monocytes # (A) 0.4 k/uL (0-1.0); Monocytes % (A) 3 %; Neutrophils # (A) 7.9 k/uL (1.3-7.7); Neutrophils % (A) 61 %; Platelet Count 325 k/uL (150-450); RBC 5.23 m/uL (4.30-5.90); RDW 12.8 % (11.5-15.5); WBC 12.8 k/uL (3.8-10.6)
--- NOTE | 2022-05-31 05:26 | XR ---
EXAMINATION TYPE: XR KUB DATE OF EXAM: 05/31/2022 COMPARISON: NONE HISTORY: Right flank pain TECHNIQUE: 2 views FINDINGS: 2 views upright show no sign of intestinal obstruction or pneumoperitoneum. Fecal pattern i s normal. No evidence of a mass. Lung bases are clear. No pathologic calcification. IMPRESSION: Nonacute abdomen.
[2022-05-31 05:30] LABS: ALT 22 U/L (4-49); AST 22 U/L (17-59); African American GFR (CKD) >90 (>60 ml/min/1.73 sqM); Albumin 5.1 g/dL (3.5-5.0); Alkaline Phosphatase 74 U/L (38-126); Anion Gap 16 mmol/L; Blood Urea Nitrogen 16 mg/dL (9-20); Calcium 9.7 mg/dL (8.4-10.2); Carbon Dioxide 20 mmol/L (22-30); Chloride 105 mmol/L (98-107); Glucose 155 mg/dL (74-99); Lipase 69 U/L (23-300); Non-African American GFR(CKD) >90 (>60 ml/min/1.73 sqM); Potassium 3.8 mmol/L (3.5-5.1); Sodium 141 mmol/L (137-145); Total Bilirubin 1.2 mg/dL (0.2-1.3); Total Protein 8.2 g/dL (6.3-8.2)
[2022-05-31 06:12] LABS: Appearance,Urine Clear (Clear); Bilirubin,Urine Negative (Negative); Blood,Urine Large (Negative); Color,Urine Yellow; Glucose,Urine (UA) Trace (Negative); Ketones,Urine 3+ (Negative); Leukocyte Esterase,Urine Negative (Negative); Mucus,Urine Few /hpf; Nitrite,Urine Negative (Negative); Protein,Urine Trace (Negative); RBC,Urine 163 /hpf (0-5); Specific Gravity,Urine 1.027 (1.001-1.035); Urobilinogen,Urine <2.0 mg/dL (<2.0); WBC,Urine 2 /hpf (0-5)
[2022-05-31] MEDS ORDERED: SODIUM CHLORIDE 0.9% 1,000 ML IV ONE (06:52)
[2022-05-31] MEDS ORDERED: METOCLOPRAMIDE 5 MG/ML 2 ML VIAL IVP STA ×2 (06:52→07:35)
[2022-05-31] MEDS ORDERED: HYDROmorphone 0.5 MG/0.5 ML SYRINGE IVP STA ×2 (06:52→07:35)
--- NOTE | 2022-05-31 06:57 | CT ---
EXAMINATION TYPE: CT abdomen pelvis wo con DATE OF EXAM: 05/31/2022 HISTORY: Right lower quadrant pain CT DLP: 393.3 mGycm. Automated Exposure Control for Dose Reduction was Utilized. TECHNIQUE: CT scan of the abdomen and pelvis is performed without oral or IV contrast. COMPARISON: Prior CT August 23, 2020 FINDINGS: Within the limitations of a non-contrast study, the following observations are made. LUNG BASES: No significant abnormality is appreciated. LIVER/GB: No significant abnormality is appreciated. PANCREAS: No significant abnormality is seen. SPLEEN: No significant abnormality is seen. ADRENALS: No significant abnormality is seen. KIDNEYS: No renal calculi seen bilaterally. No left-sided hydronephrosis. There is distal 3 mm right ureter calculus coronal image 52 causing mild right-sided hydronephrosis and perinephric fat strandin g. BOWEL: Appendix within normal limits from base of cecum coronal image 34 for reference. GENITAL ORGANS: No gross abnormality seen. LYMPH NODES: No greater than 1cm abdominal or pelvic lymph nodes are appreciated. OSSEOUS STRUCTURES: No significant abnormality is seen. OTHER: No significant additional abnormality is seen. IMPRESSION: New 3 mm distal right ureter calculus causing mild right-sided hydronephrosis.
[2022-05-31 07:12] LABS: Amphetamine Screen,Urine Not Detected (NotDetected); Barbiturate Screen,Urine Not Detected (NotDetected); Benzodiazepines Screen,Urine Not Detected (NotDetected); Cocaine Screen,Urine Not Detected (NotDetected); Methadone Screen, Urine Not Detected (NotDetected); Opiate Screen,Urine Detected (NotDetected); Oxycodone Screen, Urine Not Detected (NotDetected); Phencyclidine Screen,Urine Not Detected (NotDetected); Tricyclic Antidepressant,Urine Not Detected (NotDetected); Urn Cannabinoid Scrn Detected (NotDetected)
[2022-05-31 09:45] VITALS: BP 115/69; PULSE 80; TEMP 98.1
== END 2022-05-31 09:45 | disposition home or self-care (01) ==
LOC: EC 04:40
DX: N13.2 Hydronephrosis with renal and ureteral calculous obstruction (principal); F12.90 Cannabis use, unspecified, uncomplicated; Z87.891 Personal history of nicotine dependence
CPT/HCPCS: 36415; 80053; 83690; 85025; 81001; 80306; 74018; 74176; 99285; 96374; 96375 ×3; 96376 ×3; 96361 ×3; J2765; J2405; J1170 ×2; J1885